=== PATIENT | female | born 1995 | race Caucasian/White ===

== ENCOUNTER 2016-10-20 16:06 | Emergency (ER) | payer BC ==
[~2016-10-20] VITALS: Ht 152.4 cm; Wt 58.6 kg
[2016-10-20 16:08] VITALS: TEMP 98.4
[2016-10-20] MEDS ORDERED: XANAX .25M0.25 MG/TA PO (16:26)
[2016-10-20 16:57] LABS: PH 7 (5-8); URINE APPEARANCE Clear; URINE BACTERIA None Seen /hpf; URINE BILIRUBIN Negative (NEGATIVE); URINE BLOOD 1+ (NEGATIVE); URINE COLOR Yellow; URINE GLUCOSE Negative (NEGATIVE); URINE KETONE Trace (NEGATIVE); URINE UROBILINOGEN Negative (NEGATIVE)
[2016-10-20 17:07] LABS: BASO # 0.1 (0.0-0.2); BASO % 0.4 % (0.0-2.0); EOS # 0.1 (0.0-0.7); EOS % 0.5 % (0-4.0); GRAN # 11.6 (1.4-6.5); GRAN % 70.2 % (42.2-75.2); HEMATOCRIT 41.7 % (37.0-47.0); HEMOGLOBIN 14.1 g/dl (12.5-16.0); LYMPH # 3.7 (1.2-3.4); LYMPH % 22.5 % (20.0-51.0); MEAN CELL VOLUME 89 fl (80.0-100.0); MEAN CORPUSCULAR HEMOGLOBIN 30 pg (27.0-31.0); MEAN CORPUSCULAR HGB CONC 34 g/dl (33.0-37.0); MEAN PLATELET VOLUME 9.3 fl (7.4-10.4); MONO % 6.1 % (1.7-9.3); PLATELET COUNT 504 K/mm3 (130-400); WHITE BLOOD COUNT 16.5 K/mm3 (4.8-10.8)
[2016-10-20 17:19] LABS: ADJUSTED CALCIUM 9.6 mg/dL (8.4-10.2); ALANINE AMINOTRANSFERASE 36 U/L (9-52); ALBUMIN 4.5 gm/dL (3.5-5.0); ALKALINE PHOSPHATASE 87 U/L (50-136); ANION GAP 12 mmol/L (7-16); BILIRUBIN,TOTAL 0.9 mg/dL (0.0-1.0); BLOOD UREA NITROGEN 9 mg/dL (7-17); C-REACTIVE PROTEIN 1.1 mg/dL (0.0-0.9); CARBON DIOXIDE 24 mmol/L (22-30); CHLORIDE 103 mmol/L (98-107); CREATININE, serum 0.57 mg/dL (0.52-1.25); GLUCOSE 115 mg/dL (74-106); LIPASE 30 U/L (23-300); POTASSIUM 3.6 mmol/L (3.4-5.0); SODIUM 139 mmol/L (137-145); TOTAL PROTEIN 8.1 gm/dL (6.4-8.2)
[2016-10-20 17:34] LABS: TROPONIN-I < 0.012 ng/mL (0.000-0.034)
[2016-10-20] MEDS ORDERED: NORCO 325 MG-51 TAB PO (18:30)
[2016-10-20] MEDS ORDERED: ZOFRAN 4MG T4 MG/TAB PO (18:30)
[2016-10-20] MEDS ORDERED: CIPRO 500MG TA500 MG PO (18:30)
[2016-10-20] MEDS ORDERED: FLAGYL500 MG PO (18:30)
[2016-10-20 18:45] VITALS: BP 129/78; PULSE 97
== END 2016-10-20 18:45 | disposition home or self-care (01) ==
LOC: COL.ER 16:06
PROVIDERS: Emergency Medicine
DX: K52.9 Noninfective gastroenteritis and colitis, unspecified (principal); R07.89 Other chest pain
CPT/HCPCS: J1170; J2405; J7030; Q9967